=== PATIENT | male | born 1985 | race African-American/Black ===

== ENCOUNTER 2017-11-22 12:02 | Emergency (ER) | payer SELFPAY ==
[2017-11-22] MEDS ORDERED: IBUPROFEN 600 MG TAB PO ONE (12:12)
[2017-11-22 12:18] VITALS: RESP 18
--- NOTE | 2017-11-22 12:21 | EDPHY ---
General Narrative: CHIEF COMPLAINT: Skiing injury, left knee pain HISTORY OF PRESENT ILLNESS: Patient complains of left knee pain status post skiing injury he was skiing at [place] just prior to arrival. He says that his skis slid out into a wide position, and he could not get his foot out of the binding. He twisted his left knee and fell to the ground. He was not wearing a helmet but he did not strike his head or lose consciousness. His only complaint is left knee pain. It is moderate to severe pain. Unable to bear weight on it. Does not radiate. No numbness or tingling distally. No left hip pain. No chest, back or abdominal pain. He was evaluated by life skills educator placed in a make shift splint with cardboard and tape.. No other associated complaints or modifying factors. ESTABLISHED ORTHOPEDIST: None REVIEW OF SYSTEMS: Ten systems reviewed and are negative unless otherwise noted in the HPI PAST MEDICAL HISTORY: No medical history PAST SURGICAL HISTORY: No surgical history SOCIAL HISTORY: Patient does use tobacco alcohol and marijuana. 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 Head is normocephalic and atraumatic. Pupils equal round reactive Cardiovascular: Symmetric DP and PT pulses 2+. Brisk cap refill Neurological: A&O, sensory symmetric, lower extremity strength symmetric. No footdrop. Skin: Warm and dry, no rash. No laceration or puncture. No abrasion. Extremities: Significant tenderness to the left knee circumferentially. No crepitus. No effusion. No instability. Range of motion of the left hip and left ankle is intact. Neurovascular intact distal left knee pain Psychiatric: Mood and affect normal DIFFERENTIAL DIAGNOSES: Including but not limited to sprain, strain, fracture, dislocation, subluxation , contusion MDM: 12:13 p.m. Injury while skiing with a twisting mechanism and pain in the anterior left knee. No injury elsewhere. He is neuro intact distally. X-ray has been ordered. Ibuprofen has been ordered. No acute distress. 12:45 p.m. X-ray as read by me. There is a small area of questionable lucency on the A:2 series. I will discuss with radiologist. I have re-evaluated the patient. He does have extension of the knee intact without evidence of patellar tendon rupture. Significant pain persist. 1:40 p.m. Radiologist interpretation consistent with my initial interpretation. I will discuss with orthopedist. 1:45 p.m. Case discussed with orthopedic AFUA Jimenez. She has reviewed the plain film with me. She agrees with knee immobilizer and crutches. Nonweightbearing until seen in the office. No further recommendations for this. 2:00 p.m. Patient re-evaluated. We discussed the nonweightbearing injury. We discussed ice, elevation, anti-inflammatories. We discussed short course of pain medication as prescribed. We discussed needing him to contact Orthopedics for definitive care and ED precautions. He is comfortable this plan and discharged home neurovascular intact in stable condition. SUPERVISION: This patient was independently evaluated without direct involvement of or examination by the attending physician. ED Precautions: Worsening pain. Erythema, edema, cyanosis, pallor, paresthesia or anesthesia. - Diagnostics Imaging Results: Imaging Impressions Knee X-Ray 11/22/17 12:09 Impression: Mildly depressed lateral tibial plateau fracture. - Objective Vital Signs: Initial Vital Signs Temperature (C) 97.9 F 11/22/17 12:16 Heart Rate 77 11/22/17 12:16 Respiratory Rate 18 11/22/17 12:16 Blood Pressure 118/79 11/22/17 12:16 O2 Sat (%) 98 11/22/17 12:16 O2 Delivery Mode Room Air Allergies/Adverse Reactions: No Known Allergies Allergy (Unverified 11/22/17 12:16) Home Medications: Medication Instructions Recorded oxyCODONE HCL/ACETAMINOPHEN 1 each PO Q4-6PRN PRN #19 tablet 11/22/17 [Percocet 5-325 mg Tablet] Medications Given: Discontinued Medications Ibuprofen (Motrin) 600 mg PO EDNOW ONE Stop: 11/22/17 12:13 Last Admin: 11/22/17 12:34 Dose: 600 mg Departure - Departure Disposition: Home, Routine, Self-Care Clinical Impression: Tibial plateau fracture, left Qualifiers: Encounter type: initial encounter Fracture type: closed Qualified Code(s): S82.142A - Displaced bicondylar fracture of left tibia, initial encounter for closed fracture Condition: Good Instructions: Leg Fracture (ED) Additional Instructions: 1. Strict nonweightbearing until seen by orthopedist and cleared 2. Immobilizer and crutches as provided and instructed 3. [id number] anti-inflammatories as discussed 4. Short course of pain medication as prescribed as needed 5. Contact the on-call orthopedist as provided 6. ED precautions as discussion Referrals: Dariusz Fernández MD [Medical Doctor] - As per Instructions Stand Alone Forms: Work Excuse Prescriptions: oxyCODONE HCL/ACETAMINOPHEN [Percocet 5-325 mg Tablet] 1 each PO Q4-6PRN PRN # 19 tablet PRN Reason: Pain, Breakthrough
[2017-11-22] MEDS ORDERED: OXYCODONE/APAP 5/325 TAB PO ONE (13:47)
[2017-11-22 14:09] VITALS: BP 125/79; PULSE 65; TEMP 98.6; O2SAT 97
== END 2017-11-22 14:09 | disposition home or self-care (01) ==
DX: S82.142A Displaced bicondylar fracture of left tibia, initial encounter for closed fracture (principal); V00.321A Fall from snow-skis, initial encounter; Y99.8 Other external cause status; Y93.23 Activity, snow (alpine) (downhill) skiing, snowboarding, sledding, tobogganing and snow tubing
CPT/HCPCS: L1830